=== PATIENT | female | born 1930 | race Two or more races ===

== ENCOUNTER → 2017-02-22 | Outpatient (CLI) | payer MEDICARE ==
[~2017-02-22] VITALS: Ht 165.1 cm; Wt 63.5 kg
[~2017-02-22] MED LIST: ASPI81CH43 PO; LEVO50TA53 PO; LISI-646 PO; METO1TAB9 PO; PANTOPRAZOLE PO; SIMV-13 PO; TRIATAB3 OR
== END | disposition home or self-care (01) ==
LOC: Rad HDHVI 14:18
PROVIDERS: ATTEND Internal Medicine Cardiovascular Disease
DX: I48.0 Paroxysmal atrial fibrillation (principal); E78.00 Pure hypercholesterolemia, unspecified; R06.01 Orthopnea; I25.10 Atherosclerotic heart disease of native coronary artery without angina pectoris; Z95.0 Presence of cardiac pacemaker; Z95.1 Presence of aortocoronary bypass graft
CPT/HCPCS: 78452; 93017; 96374; A9500

== ENCOUNTER → 2017-02-24 | Outpatient (CLI) | payer MEDICARE | END | disposition home or self-care (01) | LOC: Rad HDHVI 13:42 | PROVIDERS: ATTEND Internal Medicine Cardiovascular Disease | DX: I48.0 Paroxysmal atrial fibrillation (principal); R06.01 Orthopnea | CPT/HCPCS: 93306 ==

== ENCOUNTER → 2018-01-17 | Outpatient (CLI) | payer OTHER, MEDICAID ==
[2018-01-17 12:24] LABS: Basophils # (auto) 0.1 uL; Basophils % (auto) 0.8 % (0.0-2.0); Eosinophils # (auto) 0.1 uL; Eosinophils % (auto) 2.2 % (0.0-7.0); Hematocrit 42.1 % (36.0-46.0); Lymphocytes # (auto) 1.8 uL; Lymphocytes % (auto) 26.6 % (10.0-50.0); Mean Corpuscular Hemoglobin 31.5 pg (28.0-32.0); Mean Corpuscular Hgb Conc. 33.2 g/dL (32.0-36.0); Mean Corpuscular Volume 94.9 fL (80.0-100.0); Monocytes # (auto) 0.5 uL; Monocytes % (auto) 7.9 % (0.0-12.0); Neutrophils # (auto) 4.2 uL; Neutrophils % (auto) 62.5 % (37.0-80.0); Nucleated Red Blood Cells % 0.3 %; Platelet Count (auto) 267 10^3/uL (140-450); Red Blood Cells 4.43 10^6/uL (4.0-5.20); Red Cell Distribution Width 15.3 % (11.8-14.3); Urine Blood 2+ /uL (Negative); Urine Specific Gravity 1.018 (1.001-1.035); White Blood Cell 6.8 10^3/uL (4.4-10.8)
[2018-01-17 12:30] LABS: INR 2.59 (0.9-1.15); Prothrombin Time 26.3 sec (9.27-12.13)
[2018-01-17 12:45] LABS: Free T4 (Free Thyroxine) 1.54 ng/dL (0.89-1.76)
[2018-01-17 13:13] LABS: Albumin 3.6 g/dL (3.4-5.0); Bilirubin, Total 0.5 mg/dL (0.2-1.0); Calcium 9.3 mg/dL (8.5-10.1); Total Protein 8.8 g/dL (6.4-8.2)
== END | disposition home or self-care (01) ==
LOC: LAB 08:56
PROVIDERS: ATTEND Internal Medicine Cardiovascular Disease
DX: Z00.01 Encounter for general adult medical examination with abnormal findings (principal); E11.9 Type 2 diabetes mellitus without complications; N39.0 Urinary tract infection, site not specified; E03.9 Hypothyroidism, unspecified; E55.9 Vitamin D deficiency, unspecified; D51.9 Vitamin B12 deficiency anemia, unspecified; R79.1 Abnormal coagulation profile
CPT/HCPCS: 36415; 80053; 80061; 81003; 82306; 82607; 83036; 84439; 84443; 85025; 85610; 85730; 87086; 87088; 87186

== ENCOUNTER → 2019-06-15 | Outpatient (CLI) | payer MEDICAID, MEDICARE, OTHER | END | disposition home or self-care (01) | LOC: Rad HDHVI 09:49 | PROVIDERS: ATTEND Internal Medicine Cardiovascular Disease | DX: I50.23 Acute on chronic systolic (congestive) heart failure (principal); R06.02 Shortness of breath; I48.0 Paroxysmal atrial fibrillation | CPT/HCPCS: 93306 ==

== ENCOUNTER → 2019-06-20 | Outpatient (CLI) | payer MEDICARE ==
[~2019-06-20] VITALS: Ht 165.1 cm; Wt 72.1 kg
[~2019-06-20] MED LIST changes: +ADENOSINE 61 MG in GIVE UN-DILUTED 0 ML IV ONE; +ADENOSINE 90 MG/30 ML INJ IV ONE
== END | disposition home or self-care (01) ==
LOC: Rad HDHVI 09:33
PROVIDERS: ATTEND Internal Medicine Cardiovascular Disease
DX: E78.00 Pure hypercholesterolemia, unspecified (principal); I10 Essential (primary) hypertension; Z95.1 Presence of aortocoronary bypass graft; Z95.0 Presence of cardiac pacemaker
CPT/HCPCS: 78452; 93005; 96374; 96375; A9500; J0153

== ENCOUNTER 2020-03-13 11:52 | Inpatient (IN) | payer MEDICARE ==
[~2020-03-13] VITALS: Ht 165.1 cm; Wt 66.3 kg
[~2020-03-13 11:52] MED LIST changes: -ADENOSINE 61 MG in GIVE UN-DILUTED 0 ML IV ONE; -ADENOSINE 90 MG/30 ML INJ IV ONE
[2020-03-13] MEDS ORDERED: ASCORBIC ACID 500 MG TAB PO ONE (12:15)
[2020-03-13] MEDS ORDERED: ZINC SULFATE 220mg CAP or TAB PO ONE (12:15)
[2020-03-13] MEDS ORDERED: methylPREDNISolone SOD SUCC 125 MG/2 ML VL IV ONE (12:15)
[2020-03-13] MEDS ORDERED: AZITHROMYCIN 500MG/ 250ML 250 ML IV ONE (12:15)
[2020-03-13 13:00] LABS: Basophils # (auto) 0 10 ^3/uL (0-0.2); Basophils % (auto) 0.2 % (0.0-2.0); Eosinophils # (auto) 0 10 ^3/uL (0-0.8); Eosinophils % (auto) 0.2 % (0.0-7.0); Hematocrit 40.8 % (36.0-46.0); Hemoglobin 13.8 g/dL (12.2-16.2); Lymphocytes # (auto) 1.3 10 ^3/uL (0.4-5.4); Lymphocytes % (auto) 20.6 % (10.0-50.0); Mean Corpuscular Hemoglobin 30.7 pg (28.0-32.0); Mean Corpuscular Hgb Conc. 33.8 g/dL (32.0-36.0); Monocytes # (auto) 0.7 10 ^3/uL (0-1.3); Monocytes % (auto) 10.2 % (0.0-12.0); Neutrophils # (auto) 4.5 10 ^3/uL (1.6-8.6); Neutrophils % (auto) 68.8 % (37.0-80.0); Nucleated Red Blood Cells % 0.1 %; Platelet Count (auto) 244 10^3/uL (140-450); Red Blood Cells 4.48 10^6/uL (4.0-5.20); Red Cell Distribution Width 14.7 % (11.8-14.3); White Blood Cell 6.5 10^3/uL (4.4-10.8)
[2020-03-13 13:24] LABS: Albumin 2.8 g/dL (3.4-5.0); Anion Gap 6 (5-15); Blood Urea Nitrogen 24 mg/dL (7-18); Calcium 8.3 mg/dL (8.5-10.1); Carbon Dioxide 25 mmol/L (21-32); Chloride 102 mmol/L (98-107); Glucose 101 mg/dL (74-106); Potassium 3.6 mmol/L (3.5-5.1); Sodium 133 mmol/L (136-145)
[2020-03-13 13:33] LABS: Alanine Aminotransferase 22 U/L (13-56); Alkaline Phosphatase 60 U/L (45-117); Aspartate Aminotransferase 43 U/L (15-37); BUN/Creatinine Ratio 21.1; Bilirubin, Total 0.6 mg/dL (0.2-1.0); CRP High Sensitivity 8.98 mg/dL (< 0.3); GFR African American 58 mL/min; GFR Non-African American 48 mL/min
[2020-03-13] MEDS ORDERED: NITROGLYCERIN 0.4 MG SL TAB SL PRN (16:00)
[2020-03-13] MEDS ORDERED: MORPHINE SULF INJ 2 MG/ML SYRINGE 1ML IV PRN (16:00)
[2020-03-13] MEDS: LEVALBUTEROL HCL 1.25 MG/3 ML NEB NEB SCH (22:00)
[2020-03-14 00:44] VITALS: BP 114/67
[2020-03-14] MEDS: LEVALBUTEROL HCL 1.25 MG/3 ML NEB NEB SCH ×3 (07:58→22:46)
[2020-03-14 08:37] VITALS: BP 122/63
[2020-03-14] MEDS: DexAMETHasone SOD PHOS 10MG/1ML VIAL INJ IV SCH (09:59)
[2020-03-14] MEDS: AZITHROMYCIN 500MG/ 250ML 250 ML IV SCH (09:59)
[2020-03-14] MEDS: ZINC SULFATE 220mg CAP or TAB PO SCH (10:00)
[2020-03-14] MEDS: ASCORBIC ACID 500 MG TAB PO SCH (10:00)
[2020-03-14] MEDS: CHOLECALCIFEROL (VITD3) 2,000 UNIT CAP PO SCH (10:00)
[2020-03-14 13:00] VITALS: BP 102/56
[2020-03-14 16:36] VITALS: BP 93/57
[2020-03-14 22:00] VITALS: BP 116/58
[2020-03-15 05:00] VITALS: BP 107/58
[2020-03-15] MEDS: LEVALBUTEROL HCL 1.25 MG/3 ML NEB NEB SCH ×3 (06:42→21:16)
[2020-03-15 09:00] VITALS: BP 107/52
[2020-03-15] MEDS: ASCORBIC ACID 500 MG TAB PO SCH (09:24)
[2020-03-15] MEDS: AZITHROMYCIN 500MG/ 250ML 250 ML IV SCH (09:24)
[2020-03-15] MEDS: ZINC SULFATE 220mg CAP or TAB PO SCH (09:24)
[2020-03-15] MEDS: DexAMETHasone SOD PHOS 10MG/1ML VIAL INJ IV SCH (09:24)
[2020-03-15] MEDS: CHOLECALCIFEROL (VITD3) 2,000 UNIT CAP PO SCH (09:25)
[2020-03-15 13:00] VITALS: BP 121/61
[2020-03-15 16:46] VITALS: BP 114/55
[2020-03-15 21:00] VITALS: BP 116/61
[2020-03-15] MEDS: ENOXAPARIN SOD 40 MG/0.4 ML SYRINGE SC SCH (21:59)
[2020-03-16] VITALS (7 sets, daily range): BP systolic 116–131; BP diastolic 59–67
[2020-03-16] MEDS: guaiFENesin-DM 100/10mg/5ml SYR PO PRN ×2 (02:18→20:59)
[2020-03-16] MEDS: LEVALBUTEROL HCL 1.25 MG/3 ML NEB NEB SCH ×2 (06:00→14:00)
[2020-03-16] MEDS: AZITHROMYCIN 500MG/ 250ML 250 ML IV SCH (10:02)
[2020-03-16] MEDS: DexAMETHasone SOD PHOS 10MG/1ML VIAL INJ IV SCH (10:02)
[2020-03-16] MEDS: ZINC SULFATE 220mg CAP or TAB PO SCH (10:02)
[2020-03-16] MEDS: METOPROLOL SUCCINATE XL 50 MG TAB PO SCH (10:03)
[2020-03-16] MEDS: ASCORBIC ACID 500 MG TAB PO SCH (10:03)
[2020-03-16] MEDS: LEVOTHYROXINE SODIUM 50 MCG TAB PO SCH (10:03)
[2020-03-16] MEDS: ASPirin 81 mg TAB PO SCH (10:03)
[2020-03-16] MEDS: PANTOPRAZOLE 40 MG TAB PO SCH (10:03)
[2020-03-16] MEDS: LISINOPRIL 20 MG TAB PO SCH (10:04)
[2020-03-16] MEDS: ENOXAPARIN SOD 40 MG/0.4 ML SYRINGE SC SCH ×2 (10:04→21:00)
[2020-03-16] MEDS: CHOLECALCIFEROL (VITD3) 2,000 UNIT CAP PO SCH (10:04)
[2020-03-16 15:55] LABS: Albumin 2.6 g/dL (3.4-5.0); BUN/Creatinine Ratio 21.3; Calcium 8.6 mg/dL (8.5-10.1)
[2020-03-16 15:58] LABS: Bilirubin, Total 0.5 mg/dL (0.2-1.0)
[2020-03-17 05:00] VITALS: BP 129/68
[2020-03-17] MEDS: LEVALBUTEROL HCL 1.25 MG/3 ML NEB NEB SCH ×3 (06:50→21:50)
[2020-03-17 08:00] VITALS: BP 115/54
[2020-03-17] MEDS: ASPirin 81 mg TAB PO SCH (09:46)
[2020-03-17] MEDS: DexAMETHasone SOD PHOS 10MG/1ML VIAL INJ IV SCH (09:46)
[2020-03-17] MEDS: AZITHROMYCIN 500MG/ 250ML 250 ML IV SCH (09:46)
[2020-03-17] MEDS: ZINC SULFATE 220mg CAP or TAB PO SCH (09:46)
[2020-03-17] MEDS: PANTOPRAZOLE 40 MG TAB PO SCH (09:46)
[2020-03-17] MEDS: LEVOTHYROXINE SODIUM 50 MCG TAB PO SCH (09:47)
[2020-03-17] MEDS: ASCORBIC ACID 500 MG TAB PO SCH (09:48)
[2020-03-17] MEDS: METOPROLOL SUCCINATE XL 50 MG TAB PO SCH (09:48)
[2020-03-17] MEDS: LISINOPRIL 20 MG TAB PO SCH (09:48)
[2020-03-17] MEDS: CHOLECALCIFEROL (VITD3) 2,000 UNIT CAP PO SCH (09:48)
[2020-03-17] MEDS: ENOXAPARIN SOD 40 MG/0.4 ML SYRINGE SC SCH ×2 (09:49→21:18)
[2020-03-17] MEDS ORDERED: PATIENTS OWN MEDICATION (REMDESIVIR 100 MG) IV SCH (10:00)
[2020-03-17 12:00] VITALS: BP 115/54
[2020-03-17 17:00] VITALS: BP 121/53
[2020-03-17 20:00] VITALS: BP 125/63
[2020-03-17 22:25] VITALS: BP 125/63
[2020-03-18 04:56] VITALS: BP 137/66
[2020-03-18] MEDS: LEVALBUTEROL HCL 1.25 MG/3 ML NEB NEB SCH ×3 (08:15→20:31)
[2020-03-18 09:00] VITALS: BP 139/71
[2020-03-18] MEDS: ASCORBIC ACID 500 MG TAB PO SCH (10:00)
[2020-03-18] MEDS: ZINC SULFATE 220mg CAP or TAB PO SCH (10:00)
[2020-03-18] MEDS: ASPirin 81 mg TAB PO SCH (11:13)
[2020-03-18] MEDS: PANTOPRAZOLE 40 MG TAB PO SCH (11:13)
[2020-03-18] MEDS: DexAMETHasone SOD PHOS 10MG/1ML VIAL INJ IV SCH (11:13)
[2020-03-18] MEDS: LEVOTHYROXINE SODIUM 50 MCG TAB PO SCH (11:14)
[2020-03-18] MEDS: CHOLECALCIFEROL (VITD3) 2,000 UNIT CAP PO SCH (11:15)
[2020-03-18] MEDS: METOPROLOL SUCCINATE XL 50 MG TAB PO SCH (11:17)
[2020-03-18] MEDS: LISINOPRIL 20 MG TAB PO SCH (11:17)
[2020-03-18] MEDS: AZITHROMYCIN 250 MG TAB PO SCH (11:18)
[2020-03-18] MEDS: ENOXAPARIN SOD 40 MG/0.4 ML SYRINGE SC SCH ×2 (11:18→21:52)
[2020-03-18 13:00] VITALS: BP 106/58
[2020-03-18 17:00] VITALS: BP 108/59
[2020-03-18 20:00] VITALS: BP 117/62
[2020-03-18 22:00] VITALS: BP_SYST 109; BP_SYST 117; BP_DIAS 62; BP_DIAS 71
[2020-03-19 05:00] VITALS: BP 111/65
[2020-03-19 09:00] VITALS: BP 147/64
[2020-03-19] MEDS: ASCORBIC ACID 500 MG TAB PO SCH (10:00)
[2020-03-19] MEDS: PANTOPRAZOLE 40 MG TAB PO SCH (10:41)
[2020-03-19] MEDS: DexAMETHasone SOD PHOS 10MG/1ML VIAL INJ IV SCH (10:41)
[2020-03-19] MEDS: ASPirin 81 mg TAB PO SCH (10:41)
[2020-03-19] MEDS: LEVOTHYROXINE SODIUM 50 MCG TAB PO SCH (10:41)
[2020-03-19] MEDS: ZINC SULFATE 220mg CAP or TAB PO SCH (10:41)
[2020-03-19] MEDS: ENOXAPARIN SOD 40 MG/0.4 ML SYRINGE SC SCH ×2 (10:42→22:00)
[2020-03-19] MEDS: CHOLECALCIFEROL (VITD3) 2,000 UNIT CAP PO SCH (10:42)
[2020-03-19] MEDS: AZITHROMYCIN 250 MG TAB PO SCH (10:42)
[2020-03-19] MEDS: METOPROLOL SUCCINATE XL 50 MG TAB PO SCH (10:43)
[2020-03-19] MEDS: LISINOPRIL 20 MG TAB PO SCH (10:43)
[2020-03-19 13:00] VITALS: BP 142/75
[2020-03-19] MEDS: LEVALBUTEROL HCL 1.25 MG/3 ML NEB NEB SCH ×3 (15:03→20:21)
[2020-03-19 17:00] VITALS: BP 114/58
[2020-03-19 22:00] VITALS: BP 124/63
[2020-03-20 00:46] VITALS: BP 124/63
[2020-03-20] MEDS: LEVALBUTEROL HCL 1.25 MG/3 ML NEB NEB SCH ×4 (08:06→22:49)
[2020-03-20] MEDS: DexAMETHasone SOD PHOS 10MG/1ML VIAL INJ IV SCH (10:57)
[2020-03-20] MEDS: PANTOPRAZOLE 40 MG TAB PO SCH (10:58)
[2020-03-20] MEDS: ASPirin 81 mg TAB PO SCH (10:58)
[2020-03-20] MEDS: ZINC SULFATE 220mg CAP or TAB PO SCH (10:58)
[2020-03-20] MEDS: ASCORBIC ACID 500 MG TAB PO SCH (10:58)
[2020-03-20] MEDS: LEVOTHYROXINE SODIUM 50 MCG TAB PO SCH (10:58)
[2020-03-20] MEDS: CHOLECALCIFEROL (VITD3) 2,000 UNIT CAP PO SCH (10:58)
[2020-03-20] MEDS: AZITHROMYCIN 250 MG TAB PO SCH (10:59)
[2020-03-20] MEDS: ENOXAPARIN SOD 40 MG/0.4 ML SYRINGE SC SCH ×2 (10:59→21:26)
[2020-03-20] MEDS: METOPROLOL SUCCINATE XL 50 MG TAB PO SCH (11:16)
[2020-03-20] MEDS: LISINOPRIL 20 MG TAB PO SCH (11:16)
[2020-03-20 13:00] VITALS: BP 119/58
[2020-03-20 16:50] VITALS: BP 110/51
[2020-03-20 22:43] VITALS: BP 110/58
[2020-03-21 05:34] VITALS: BP 101/55
[2020-03-21] MEDS: LEVALBUTEROL HCL 1.25 MG/3 ML NEB NEB SCH ×3 (07:35→21:34)
[2020-03-21 08:00] VITALS: BP 105/55
[2020-03-21 08:42] VITALS: BP 105/60
[2020-03-21] MEDS: METOPROLOL SUCCINATE XL 50 MG TAB PO SCH (11:00)
[2020-03-21] MEDS: ENOXAPARIN SOD 40 MG/0.4 ML SYRINGE SC SCH ×2 (11:00→21:40)
[2020-03-21] MEDS: ASPirin 81 mg TAB PO SCH (11:00)
[2020-03-21] MEDS: LISINOPRIL 20 MG TAB PO SCH (11:00)
[2020-03-21] MEDS: ZINC SULFATE 220mg CAP or TAB PO SCH (11:01)
[2020-03-21] MEDS: ASCORBIC ACID 500 MG TAB PO SCH (11:01)
[2020-03-21] MEDS: PANTOPRAZOLE 40 MG TAB PO SCH (11:01)
[2020-03-21] MEDS: DexAMETHasone SOD PHOS 10MG/1ML VIAL INJ IV SCH (11:01)
[2020-03-21] MEDS: LEVOTHYROXINE SODIUM 50 MCG TAB PO SCH (11:01)
[2020-03-21] MEDS: CHOLECALCIFEROL (VITD3) 2,000 UNIT CAP PO SCH (11:02)
[2020-03-21 12:34] VITALS: BP 130/64
[2020-03-21 17:16] VITALS: BP 122/56
[2020-03-21 22:00] VITALS: BP 125/85
[2020-03-22 05:00] VITALS: BP 133/64
[2020-03-22] MEDS: LEVALBUTEROL HCL 1.25 MG/3 ML NEB NEB SCH ×2 (05:55→13:14)
[2020-03-22 09:08] VITALS: BP 120/76
[2020-03-22] MEDS: LISINOPRIL 20 MG TAB PO SCH (10:00)
[2020-03-22] MEDS: CHOLECALCIFEROL (VITD3) 2,000 UNIT CAP PO SCH (10:00)
[2020-03-22] MEDS: METOPROLOL SUCCINATE XL 50 MG TAB PO SCH (10:00)
[2020-03-22] MEDS: ASCORBIC ACID 500 MG TAB PO SCH (10:53)
[2020-03-22] MEDS: ASPirin 81 mg TAB PO SCH (10:53)
[2020-03-22] MEDS: ENOXAPARIN SOD 40 MG/0.4 ML SYRINGE SC SCH (10:54)
[2020-03-22] MEDS: LEVOTHYROXINE SODIUM 50 MCG TAB PO SCH (10:54)
[2020-03-22] MEDS: ZINC SULFATE 220mg CAP or TAB PO SCH (10:54)
[2020-03-22] MEDS: PANTOPRAZOLE 40 MG TAB PO SCH (10:54)
[2020-03-22] MEDS: DexAMETHasone SOD PHOS 10MG/1ML VIAL INJ IV SCH (10:57)
[2020-03-22 12:24] VITALS: BP 100/45
[2020-03-22 12:58] VITALS: BP 111/65
[2020-03-22 17:00] VITALS: BP 123/60
== END 2020-03-22 18:58 | disposition home or self-care (01) | DRG 177 ==
LOC: ER 11:52 → OVERFLOW 11:53 → EAST 03-14 05:35
PROVIDERS: ADMIT Internal Medicine Cardiovascular Disease; ATTEND Internal Medicine Cardiovascular Disease
DX: U07.1 COVID-19 (principal); J12.89 Other viral pneumonia; J96.00 Acute respiratory failure, unspecified whether with hypoxia or hypercapnia; E87.1 Hypo-osmolality and hyponatremia; I10 Essential (primary) hypertension; Z95.1 Presence of aortocoronary bypass graft; I25.10 Atherosclerotic heart disease of native coronary artery without angina pectoris; Z91.19 Patient's noncompliance with other medical treatment and regimen; Z90.49 Acquired absence of other specified parts of digestive tract
CPT/HCPCS: 36415; 36600; 71045; 80053; 82728; 82805; 83605; 83880; 84484; 85025; 85379; 86141; 87040; 87426; 93005; 94640; G0378; J1100

== ENCOUNTER → 2020-04-22 | Outpatient (CLI) | payer MEDICARE | END | disposition home or self-care (01) | LOC: Rad HDHVI 10:08 | PROVIDERS: ATTEND Internal Medicine Cardiovascular Disease | DX: R06.02 Shortness of breath (principal); I70.0 Atherosclerosis of aorta; Z95.0 Presence of cardiac pacemaker; Z98.890 Other specified postprocedural states | CPT/HCPCS: 71046 ==

== ENCOUNTER → 2021-12-09 | Outpatient (CLI) | payer MEDICARE ==
[~2021-12-09] MED LIST changes: -LISI-646 PO; +LISI20TA28 PO
== END | disposition home or self-care (01) ==
LOC: LAB 14:03
PROVIDERS: ATTEND Internal Medicine Cardiovascular Disease
DX: I50.23 Acute on chronic systolic (congestive) heart failure (principal)
CPT/HCPCS: 83880

== ENCOUNTER → 2021-12-16 | Outpatient (CLI) | payer MEDICARE | END | disposition home or self-care (01) | LOC: Rad HDHVI 14:49 | PROVIDERS: ATTEND Internal Medicine Cardiovascular Disease | DX: I70.203 Unspecified atherosclerosis of native arteries of extremities, bilateral legs (principal); I82.409 Acute embolism and thrombosis of unspecified deep veins of unspecified lower extremity; R60.9 Edema, unspecified | CPT/HCPCS: 93925 ==

== ENCOUNTER → 2021-12-18 | Outpatient (CLI) | payer MEDICARE ==
[~2021-12-18] VITALS: Ht 165.1 cm; Wt 66.7 kg
== END | disposition home or self-care (01) ==
LOC: Rad HDHVI 09:26
PROVIDERS: ATTEND Internal Medicine Cardiovascular Disease
DX: I11.0 Hypertensive heart disease with heart failure (principal); I50.33 Acute on chronic diastolic (congestive) heart failure; R06.02 Shortness of breath; I25.2 Old myocardial infarction; I48.0 Paroxysmal atrial fibrillation; I25.10 Atherosclerotic heart disease of native coronary artery without angina pectoris; E78.5 Hyperlipidemia, unspecified; Z82.49 Family history of ischemic heart disease and other diseases of the circulatory system; Z95.0 Presence of cardiac pacemaker; Z95.1 Presence of aortocoronary bypass graft
CPT/HCPCS: 78472; 96374; 96375; A9505